=== PATIENT | female | born 1985 | race Two or more races ===

== ENCOUNTER 2021-09-15 17:37 | Emergency (ER) | payer OTHER ==
[~2021-09-15] VITALS: Ht 152.4 cm; Wt 72.6 kg
== END 2021-09-15 22:52 | disposition home or self-care (01) ==
LOC: ER 17:37
DX: O20.9 Hemorrhage in early pregnancy, unspecified (principal); Z3A.08 8 weeks gestation of pregnancy

== ENCOUNTER 2021-09-18 20:28 | Emergency (ER) | payer OTHER ==
[~2021-09-18] VITALS: Ht 152.4 cm; Wt 72.6 kg
== END 2021-09-19 14:21 | disposition home or self-care (01) ==
LOC: ER 20:28
DX: O03.9 Complete or unspecified spontaneous abortion without complication (principal)